=== PATIENT | female | born 1990 | race Caucasian/White ===

== ENCOUNTER 2016-07-30 15:18 | Emergency (ER) | payer BC, MEDICAID ==
[2016-07-30 17:37] VITALS: BP 117/66
--- NOTE | 2016-07-30 17:50 | UC ---
Throat Pain/Nasal Price HPI - HPI Summary HPI Summary: "sinus infx" x 2 weeks. Now with cough. Right cheek is painful and teeth hurt now. States her eyes were red and crusted shut this am. 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 polyps/cervical - Family History Known Family History: Positive: Hypertension - Social History Occupation: Employed Full-time Alcohol Use: None Substance Use Type: None Smoking Status (MU): Never Smoked Tobacco - Immunization History Most Recent Influenza Vaccination: none Review of Systems Constitutional: Negative Skin: Negative Eyes: Drainage, Eye Redness ENT: Nasal Discharge, Other - sinus tenderness Respiratory: Cough Cardiovascular: Negative Gastrointestinal: Negative Genitourinary: Negative Motor: Negative Neurovascular: Negative Musculoskeletal: Negative Neurological: Negative Psychological: Negative All Other Systems Reviewed And Are Negative: Yes Physical Exam Triage Information Reviewed: Yes Appearance: Well-Nourished, Ill-Appearing, Pain Distress Vital Signs: Initial Vital Signs Temp 98.6 F 07/30/16 17:31 Pulse 91 07/30/16 17:31 Resp 16 07/30/16 17:31 BP 117/66 07/30/16 17:31 Pulse Ox 100 02/10/17 17:31 Vital Signs Reviewed: Yes Eyes: Positive: Conjunctiva Inflamed - bilat, right greater than left ENT: Positive: Hearing grossly normal, Pharyngeal erythema, TMs normal, Muffled/ hoarse voice, Other: - sinus tenderness bilat maxillary Neck: Positive: Supple, Nontender, No Lymphadenopathy Respiratory: Positive: Lungs clear, Normal breath sounds, No respiratory distress Cardiovascular: Positive: RRR, No Murmur, Pulses Normal, Brisk Capillary Refill Musculoskeletal: Positive: Strength Intact, ROM Intact Neurological: Positive: Alert, Muscle Tone Normal Psychological Exam: Normal Skin Exam: Normal Throat Pain/Nasal Course/Dx - Course Course Of Treatment: [facility] [place] is neg - Differential Dx/Diagnosis Differential Diagnosis/HQI/PQRI: Influenza, Laryngitis, Sinusitis, URI Provider Diagnoses: sinusitis. conjunctivitis, bilat Discharge - Discharge Plan Condition: Stable Disposition: HOME Prescriptions: Amoxicillin/Clavulanate TAB* [Augmentin TAB 875*] 875 mg PO BID #20 tab Tobramycin 0.3% OPHTH.JULIANA* 2 drop BOTH EYES Q4H #1 btl Patient Education Materials: Sinusitis (ED), Conjunctivitis (ED) Referrals: Sabiha Smith MD [Primary Care Provider] -
== END 2016-07-30 18:31 | disposition home or self-care (01) ==
LOC: UCCORT 15:18
DX: J32.9 Chronic sinusitis, unspecified (principal); H10.9 Unspecified conjunctivitis; E07.9 Disorder of thyroid, unspecified
CPT/HCPCS: 81025; 99212; G0463

== ENCOUNTER 2019-08-19 08:47 | Emergency (ER) | payer BC ==
[2019-08-19 09:17] VITALS: BP 106/66
--- NOTE | 2019-08-19 09:36 | UC ---
Lower Extremity/Ankle HPI - HPI Summary HPI Summary: 28 year old female presents with complaint of right foot pain at the ist PIP joint after she slipped getting out of a hot tub and hit right foot on grill cutting open her right great toe. She did not fall nor hit her head. Hurts to walk on her right foot. - History of Current Complaint Chief Complaint: UCGeneralIllness Stated Complaint: RIGHT FOOT INJURY Time Seen by Provider: 08/19/19 09:32 Hx Last Menstrual Period: 07/09/19 ?: No Pain Intensity: 8 - Allergies/Home Medications Allergies/Adverse Reactions: Allergies Allergy/AdvReac Type Severity Reaction Status Date / Time No Known Allergies Allergy Verified 08/19/19 10:09 Home Medications: Home Medications Levothyroxine TAB* [Synthroid 100 MCG TAB*] 100 mcg PO DAILY 07/30/16 [History Confirmed 08/19/19] Amoxicillin/Clavulanate TAB* [Augmentin TAB 500 mg*] 500 mg PO BID 10 Days #20 tab 08/19/19 [Rx] Ibuprofen [Advil Liqui-Gels] 2 tab PO ONCE 08/19/19 [History Confirmed 08/19/19] PMH/Surg Hx/FS Hx/Imm Hx Previously Healthy: Yes - Surgical History Surgical History: Yes Surgery Procedure, Year, and Place: tonsillectomy. polyps/cervical - Family History Known Family History: Positive: Hypertension - Social History Alcohol Use: Rare Alcohol Amount: 2x month Substance Use Type: None Smoking Status (MU): Never Smoked Tobacco - Immunization History Most Recent Influenza Vaccination: none Most Recent Tetanus Shot: within last year Review of Systems All Other Systems Reviewed And Are Negative: Yes Constitutional: Negative: Fever, Chills Skin: Positive: Bruising - and swelling with lacreration at right 1st PIP joint. Eyes: Positive: Negative ENT: Positive: Negative Respiratory: Positive: Negative Cardiovascular: Positive: Negative Gastrointestinal: Positive: Negative Genitourinary: Positive: Negative Motor: Positive: Negative Neurovascular: Positive: Negative Musculoskeletal: Positive: Negative Neurological/Mental Status: Positive: Negative Psychological: Positive: Negative Is Patient Immunocompromised?: No Physical Exam Triage Information Reviewed: Yes Appearance: Well-Appearing, Pain Distress - tearful due to pain and fear of needles. Vital Signs: Initial Vital Signs Temp 99.1 F 08/19/19 09:11 Pulse 82 08/19/19 09:11 Resp 16 03/01/20 09:11 BP 106/66 08/19/19 09:11 Pulse Ox 100 08/19/19 09:11 ENT: Positive: Normal ENT inspection Neck: Positive: Supple, Nontender, No Lymphadenopathy Respiratory: Positive: Lungs clear. Negative: Crackles, Rhonchi, Wheezing Cardiovascular: Positive: RRR, No Murmur Abdomen Description: Positive: Nontender, Soft Musculoskeletal: Positive: ROM Limited @ - right 1st PIP joint Neurological Exam: Normal Psychological Exam: Normal Skin: Positive: Significant Lesion(s) - laceration right 1st pip joint. Capillary refill brisk. Procedures - Laceration/Wound Repair 1 Location: lower extremity - Right foot over PIP joint Description: Linear Anesthesia: Local, 2.0%, Lido Length, Depth and Shape: 2.0cm Betadine Prep?: Yes Laceration/Wound Explored: clean, no foreign body removed Closure: Single Layer Debridement: minimal Suture Type: Prolene Number of Sutures: 4 Layer Closure?: No Sterile Dressing Applied?: Yes Diagnostics - Radiology No standard instances Radiology Interpretation Completed By: Radiologist Summary of Radiographic Findings: Sales Utility Representative: Rahat Olivares ([id number]) Armature Winder Repairer: ANDREW (NUANCE) Report Date: 08/19/2019 10:22:00 Report Status: Final Start of Report Content Patient Name: JR MAHAN Medical Record#: [id number] Ordering Physician: Kannan George MD Acct.#: [id number] : 1990 Age: 28 Sex: F Location: [facility] [place] Exam Date: 08/19/19943 ADM Status: REG ER Order Information: FOOT RIGHT 3+ VWS Accession Number: [id number] CPT: 36350 INDICATION: Laceration at the right first interphalangeal joint COMPARISON: None. TECHNIQUE: 3 views of the right foot were obtained. FINDINGS: Overlying the medial distal corner of the right great toe proximal phalanx there is a focal lucency that extends to the cortex. Otherwise the adequately corticated bones are properly aligned. Joint spaces appear maintained. No fracture, dislocation or focal bony abnormality is seen. IMPRESSION: LUCENT DEFECT AT THE DISTAL MEDIAL CORNER OF THE RIGHT GREAT TOE PROXIMAL PHALANX COULD BE BONY INJURY ACCORDING TO THE REPORTED HISTORY OF FIRST TOE LACERATION. PLEASE CORRELATE TO PHYSICAL EXAMINATION AND SPECIFICALLY LOCATION OF THE LACERATION. <Electronically signed by Rahat Olivares MD in OV> 08/19/19 1018 Dictated By: Rahat Olivares MD Dictated Date/Time: 08/19/19 1015 Transcribed Date/Time: 08/19/19 1015 Copy to: CC:Kannan George MD; Grace WARNER Imaging - [facility] - [place] [facility] - [facility] [address] [address] ph [phone]) ph [phone]) ([phone]) End of Report Content Lower Extremity Course/Dx - Course Course Of Treatment: Placed on Augmentin due to possible frx of right 1st proximal phalanx. - Differential Dx/Diagnosis Provider Diagnosis: Laceration of foot, Fracture of proximal phalanx of toe of right foot Discharge ED - Sign-Out/Discharge Documenting (check all that apply): Patient Departure All imaging exams completed and their final reports reviewed: Yes - Discharge Plan Condition: Stable Disposition: HOME Prescriptions: Amoxicillin/Clavulanate TAB* [Augmentin TAB 500 mg*] 500 mg PO BID 10 Days #20 tab Patient Education Materials: Laceration (DC) Referrals: Grace Willson PA [Primary Care Provider] - Bam Agosto MD [Medical Doctor] - Additional Instructions: Four sutures were placed for your right foot laceration. I recommend removal of the sutures in 10 days. Call to schedule an Orthopedic appointment. Wear the post-op shoe until evaluated by Orthopedics. - Billing Disposition and Condition Condition: STABLE Disposition: Home
[2019-08-19] MEDS ORDERED: Acetaminophen TAB* 325 MG PO ONE (09:55)
[2019-08-19] MEDS ORDERED: Lidocaine 2% PF * 5 ML VIAL INJ ONE (10:05)
== END 2019-08-19 11:25 | disposition home or self-care (01) ==
LOC: UCCORT 08:47
DX: S91.119A Laceration without foreign body of unspecified toe without damage to nail, initial encounter (principal); S92.911A Unspecified fracture of right toe(s), initial encounter for closed fracture; W01.0XXA Fall on same level from slipping, tripping and stumbling without subsequent striking against object, initial encounter; Y92.9 Unspecified place or not applicable
CPT/HCPCS: 12001; 13131; 99213; A9270-GY; G0463